=== PATIENT | male | born 1980 | race Caucasian/White ===

== ENCOUNTER 2020-06-29 17:49 | Emergency (ER) | payer SELFPAY ==
[~2020-06-29] VITALS: Ht 170.2 cm; Wt 83.9 kg
--- NOTE | 2020-06-29 17:53 | NUR ---
Patient to ER bed CH1 to gown for evaluation. Side rails up.
[2020-06-29 17:54] VITALS: BP_SYST 129
--- NOTE | 2020-06-29 17:54 | NUR ---
Pt brought by police officers for medical clearance ,pt on handcuffs , A&Ox4, pt presents to ER with R wris pain/numbness, skin pink and warm, cap refill<3, VSS.
--- NOTE | 2020-06-29 18:00 | NUR ---
Dr George evaluating patient at bedside
[2020-06-29 18:09] VITALS: BP_SYST 129
--- NOTE | 2020-06-29 18:10 | NUR ---
Patient given written and verbal discharge instructions and verbalizes understanding. DR. IVAN MAYA MD discussed with patient the results and treatment provided. Patient in stable condition. ID arm band removed. Patient educated on pain management and to follow up with PMD. Pain Scale 0/10. Opportunity for questions provided and answered.
== END 2020-06-29 18:10 ==
LOC: SED 17:49
DX: R20.2 Paresthesia of skin (principal)
CPT/HCPCS: 99283